=== PATIENT | female | born 1950 | race Caucasian/White ===

== ENCOUNTER 2017-02-21 14:04 | Outpatient (CLI) | payer MEDICARE ==
[~2017-02-21] VITALS: Ht 160 cm; Wt 42.7 kg
[~2017-02-21 14:04] MED LIST: ABILIFY2 MG PO; CELEXA20 MG PO; KLONOPIN1 MG PO; LISINOPRIL10 MG; NEXIUM40 MG PO; NORCO 10/325 TA1 TA1 PO; PRINIVIL10 MG PO; ULTRAM50 MG PO; ZOFRAN4 MG
[2017-02-21 14:31] VITALS: Ht 160 cm; Wt 42.7 kg
== END 2017-02-21 14:52 | disposition home or self-care (01) ==
LOC: D.OPS 14:04
DX: M81.0 Age-related osteoporosis without current pathological fracture (principal)

== ENCOUNTER → 2017-04-07 08:57 | Outpatient (CLI) | payer MEDICARE ==
[2017-02-21 14:31] VITALS: BMI 16.6
== END | disposition home or self-care (01) ==
LOC: D.US 08:30
DX: M67.432 Ganglion, left wrist (principal)